=== PATIENT | female | born 2000 | race Caucasian/White ===

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

== ENCOUNTER 2022-01-26 10:22 | Outpatient (REF) | payer MEDICAID, SELFPAY | END 2022-01-26 10:23 | disposition home or self-care (01) | LOC: NCHCN 10:22 | PROVIDERS: Visit Provider Nurse Practitioner Women's Health | CPT/HCPCS: 87529 ==

== ENCOUNTER 2022-07-01 16:49 | Outpatient (REF) | payer MEDICAID, SELFPAY ==
[2022-07-04 15:19] LABS: Chlamydia Result Negative (Negative); GC Result Negative (Negative)
== END 2022-07-01 16:50 | disposition home or self-care (01) ==
LOC: LBN 16:49
PROVIDERS: Visit Provider Obstetrics & Gynecology
DX: Z11.3 Encounter for screening for infections with a predominantly sexual mode of transmission (principal)
CPT/HCPCS: 87491; 87591

== ENCOUNTER 2023-02-25 16:53 | Emergency (ER) | payer OTHER, MEDICAID, SELFPAY ==
--- NOTE | 2023-02-25 16:45 | DI.RAD_ITS ---
Exam(s) XR WRIST LT COMP NAVICULAR EXAM: XR WRIST LT COMP NAVICULAR CLINICAL HISTORY: pain. TECHNIQUE: 2D digital imaging was performed. Three views. COMPARISON: No exams were available for comparison FINDINGS: BONES: Question of nondisplaced distal radial fracture. No bony destructive lesion is seen. JOINTS: The carpal bones are normally aligned. SOFT TISSUE: Normal. IMPRESSION: Question of a nondisplaced distal radial fracture. Follow-up recommended. DATA REPOSITORY: RADIATION DOSE DELIVERED:
--- NOTE | 2023-02-25 17:08 | ED.GENADUL_ITS ---
Discharge Plan Disposition Patient Disposition: Home Discharge Details Clinical Impression: Left wrist sprain Primary Care Provider: Ana Ashraf ED Provider: Tripp Fontaine Home Meds and New Rx's Prescriptions: No Action albuterol sulfate [ProAir HFA] 90 mcg/actuation HFA aerosol inhaler 1 - 2 puff Inhalation Q4H PRN Qty: 2 0RF (DME) Aerochamber MV Spacer See Rx Instructions .ROUTE .MEDSUPPLY Qty: 1 0RF Rx Instructions: As directed Kyleena 17.5 mcg/24 hrs (5 yrs) 19.5 mg intrauterine device 1 device intrauterine ONCE Rx Instructions: as a single dose Discharge Instructions Instructions: Wrist Sprain (ED) Additional Instructions: Use the Hank wrap for support for the next 3 to 4 days. You may take Tylenol and Motrin for the pain. You may apply some ice packs to the affected area Discharge Data Discharge Date/Time-TO BE ENTERED AT DEPARTURE: 02/25/23 17:44 Medical Decision Making 23-year-old presents to the emergency department with left wrist pain. X-rays did not reveal any acute injuries. I believe this is swelling that she has risk is soft tissue related. She will be put on a Hank wrap and discharged home. Clinical impression wrist sprain HPI General Date/Time Provider Initiated Documentation: 02/25/23 16:54 . HPI Narrative: 22-year-old presented to the emergency room for evaluation of left wrist pain. She was playing softball going backwards tripped over her feet landed on her back and onto her left elbow. She states that she immediately felt pain in her left wrist. Pain with ranging the wrist. There is swelling and redness. No direct hit to the wrist. Isolated. Occurred prior to coming to the emergency department. Better with ice. Related Data Home Medications Medication Instructions Recorded Confirmed albuterol sulfate 90 mcg/actuation 1 - 2 puff inhalation Q4H PRN ##2 06/16/20 02/25/23 aerosol inhaler (ProAir HFA) inhalational spacing device #1 ea 06/16/20 02/25/23 (Aerochamber MV spacer) levonorgestrel 17.5 mcg/24 hrs 1 device intrauterine ONCE 12/08/20 02/25/23 (5yrs) 19.5mg intrauterine device (Kyleena) Previous Rx's Medication Instructions Recorded albuterol sulfate 90 mcg/actuation 1 - 2 puff inhalation Q4H PRN ##2 06/16/20 aerosol inhaler (ProAir HFA) inhalational spacing device #1 ea 06/16/20 (Aerochamber MV spacer) Allergies Allergy/AdvReac Type Severity Reaction Status Date / Time amoxicillin Allergy Severe Verified 07/01/22 15:00 environmental Allergy Mild Uncoded 07/01/22 15:00 General Stated Complaint: Orthopedic ROSEMARIE: 4 Review of Systems Narrative: Constitutional negative MSK see HPI, skin see HPI neuro no paresthesias, hematological not on blood thinners PFSH All Active Problems (Updated 02/25/23 @ 17:36 by Tripp Fontaine MD) Left wrist sprain (Acute) Pelvic pain (Acute) IUD surveillance (Acute) Depression (Chronic) Laceration of left index finger (Acute) Mild intermittent asthma without complication (Acute 01/05/16) exercise trigger Contraception (Acute) Depression with anxiety (Acute) Medical History Asthma only with URI Enuresis Right tibial fracture 2014 [place] Family History Other Alcohol abuse maternal Personal history of malignant neoplasm maternal-prostate Heart disease Grandparent Hyperlipidemia mat great grandmother Mental disorder paternal- anxiety/depression Myocardial infarction maternal Cancer Grandparent Hypertension Grandparent Asthma mat great grandmother Mother Healthy adult on routine physical examination Father Healthy adult on routine physical examination Maternal Grandmother Uterine cancer Social History Smoking/Tobacco Use Status: Never Smokeless tobacco user: other Quit status: quit date established Second Hand Exposure: No Smoking risk assessment performed?: Yes Alcohol Intake: current Alcohol Intake frequency: holidays/special occasions only Drug use: Occasionally Substance use type: marijuana Household members: family Pets and animals: Yes Pets and animals: cat(s), dog(s), guinea pig(s) and farm animals Sexually active: Yes Seatbelt use: always Helmet use: Yes Working smoke detector in home: Yes Fire extinguisher in home: Yes Carbon monox detector in home: Yes Do you feel safe at home: Yes Do you feel safe in your relationship?: Yes Female Reproductive History Menstrual control method: condoms and implanted History History 0 Para Hx # Term Pregnancies Multiple births Hx # Pregnancies Ectopic pregnancies AB induced Hx Number of Living Children AB spontaneous Exam Narrative Exam Narrative: Awake alert noted x3 calm no acute distress pleasant cooperative Normocephalic atraumatic Anicteric MMM PERRLA EOMI Respiratory no dyspnea normal respiratory drive Cardiovascular normal cap refill Left wrist. Course Vital Signs Vital signs: Respiratory Effort Normal, Non-Labored 02/25/23 17:00 Oxygen Delivery Method Room Air 02/25/23 16:58 Oxygen Flow Rate 0 02/25/23 16:58 Pain Level 6 02/25/23 16:58
--- NOTE | 2023-02-25 17:31 | DI.VRAD_ITS ---
PROCEDURE INFORMATION: Exam: XR Left Wrist Exam date and time: 02/25/2023 5:10 PM Age: 23 years old Clinical indication: Injury or trauma; Fall; Sprain or strain; Wrist; Left TECHNIQUE: Imaging protocol: Radiologic exam of the left wrist. Views: 3 or more views. COMPARISON: No relevant prior studies available. FINDINGS: Bones/joints: Normal. Soft tissues: Normal. IMPRESSION: No acute findings. Dictated and Authenticated by: Young Cheng MD. Ordering:DEVON Almaguer MD
== END 2023-02-25 17:44 | disposition home or self-care (01) ==
PROVIDERS: Emergency Provider Emergency Medicine; PCP Physician Assistant Medical
DX: S63.502A Unspecified sprain of left wrist, initial encounter (principal); W19.XXXA Unspecified fall, initial encounter
CPT/HCPCS: 99283; 73110

== ENCOUNTER 2023-05-10 10:03 | Outpatient (REF) | payer OTHER, MEDICAID, SELFPAY ==
--- NOTE | 2023-05-10 09:40 | PAPFT_PTH ---
PATIENT: Qian Gaviria LOC: [facility] U#:[id number] AGE/SX: 23/F ROOM: RE05/10/[address]: Ginger Roach NP : 2000 BED: DIS: 05/10/2023 SPEC #: [id number] RECD: 05/10/23 12:55 STATUS: TERRELL REMilton #: [id number] ADONAY: 05/10/23 09:[address]: Ginger Roach NP DEPT: [facility] Cytology RECD BY: Nasreen Martinez ENTERED: 05/10/23 12:55 SP TYPE: PAPFT OTHR DR: Ana Ashraf Tissues: 1 - CX/ENDOCX FOR PAP SMEARS Procedures: PAP THIN PREP/[facility] Screening Comments: [id number]
== END 2023-05-10 10:04 | disposition home or self-care (01) ==
LOC: LBN 10:03
PROVIDERS: PCP Physician Assistant Medical; Visit Provider Nurse Practitioner Women's Health
DX: Z11.51 Encounter for screening for human papillomavirus (HPV) (principal)
CPT/HCPCS: 88142

== ENCOUNTER 2023-09-13 12:52 | Outpatient (REF) | payer OTHER, MEDICAID, SELFPAY ==
[2023-09-13 15:24] LABS: Abs Immature Grans 0.02 10^3/uL (0.0-0.06); Absolute Basophil Count 0.05 10^3/uL (0.0-0.2); Absolute Eosinophil Count 0.09 10^3/uL (0.0-0.7); Absolute Lymphocyte Count 1.94 10^3/uL (1.2-3.4); Absolute Monocyte Count 0.48 10^3/uL (0.1-0.8); Absolute Neutrophil Count 5.27 10^3/uL (1.2-6.7); Basophils % 0.6; Eosinophils % 1.1; HCT 41.5 % (36.0-46.0); HGB 13.9 g/dL (11.2-15.7); Immature Grans % 0.3; Lymphocytes % 24.7; MCH 29.3 pg (27.0-33.0); MCHC 33.5 % (32.0-36.0); MCV 88 fL (80-95); MPV 11.5 fL (8.0-11.0); Monocytes % 6.1; Neutrophils % 67.2; Platelet Count 289 10^3/uL (130-400); RBC 4.74 10^6/uL (3.93-5.22); RDW 12.2 % (11.7-14.6); RDW-SD 39.2 fL; WBC 7.85 10^3/uL (4.4-10.8)
[2023-09-13 15:43] LABS: ALT 16 U/L (14-59); AST 14 U/L (15-37); Albumin 4.7 g/dL (3.4-5.0); Alkaline Phosphatase 52 U/L (46-116); Anion Gap 7.5 mmol/L (3-11); BUN 10 mg/dL (7-18); Bilirubin, Total 0.6 mg/dL (0.2-1.0); CO2 28.5 mmol/L (21.0-32.0); CREATININE 0.7 mg/dL (0.55-1.02); Calcium 9.8 mg/dL (8.5-10.1); Chloride 103 mmol/L (98-107); Estimated GFR 126.11 (mL/min/1.73m2); Glucose 91 mg/dL (74-106); Magnesium 2.3 mg/dL (1.8-2.4); Potassium 3.5 mmol/L (3.5-5.1); Sodium 139 mmol/L (136-145); TSH (W/Ref FT4) 0.82 uIU/mL (0.36-3.74); Total Protein 8.5 g/dL (6.4-8.2)
== END 2023-09-13 12:53 | disposition home or self-care (01) ==
LOC: NCHCN 12:52
PROVIDERS: PCP Physician Assistant Medical; Visit Provider Physician Assistant Medical
DX: Z00.00 Encounter for general adult medical examination without abnormal findings (principal); F41.9 Anxiety disorder, unspecified
CPT/HCPCS: 80053; 83735; 84443; 85025

== ENCOUNTER 2023-11-23 10:27 | Emergency (ER) | payer OTHER, SELFPAY ==
[2023-11-23 10:31] VITALS: BP 121/58; PULSE 65; RESP 15; TEMP 37; O2SAT 100
--- NOTE | 2023-11-23 10:53 | ED.GENADUL_ITS ---
HPI General Mode of arrival: ambulatory . Date/Time Provider Initiated Documentation: 11/23/23 10:41 . Limitations to Documentation: no limitations . Information obtained by: patient . History of Present Illness 23 year old F presents to the emergency department with the chief complaint of neck and head pain, described as mild, Quality is described as aching, and is localized to the neck. Patient reports no radiation. and it has been constant. No relieving factors improve symptom(s), No exacerbating factors reported . Patient notes denies chest pain, fever/chills and shortness of breath. Patient did receive the following treatments prior to arrival, none Related Data Home Medications Medication Instructions Recorded Confirmed albuterol sulfate 90 mcg/actuation 1 - 2 puff inhalation Q4H PRN ##2 06/16/20 11/23/23 aerosol inhaler (ProAir HFA) inhalational spacing device #1 ea 06/16/20 11/23/23 (Aerochamber MV spacer) escitalopram oxalate 10 mg tablet 10 mg PO DAILY 11/23/23 11/23/23 Previous Rx's Medication Instructions Recorded albuterol sulfate 90 mcg/actuation 1 - 2 puff inhalation Q4H PRN ##2 06/16/20 aerosol inhaler (ProAir HFA) inhalational spacing device #1 ea 06/16/20 (Aerochamber MV spacer) Allergies Allergy/AdvReac Type Severity Reaction Status Date / Time amoxicillin Allergy Severe Verified 05/10/23 09:23 environmental Allergy Mild Uncoded 05/10/23 09:23 General Stated Complaint: Nk/Back Pain ROSEMARIE: 4 Review of Systems All systems reviewed & are unremarkable except as noted in HPI and below Constitutional Constitutional: Denies chills, Denies fever(s) and Denies weakness Eyes Eyes: Denies loss of vision Cardiovascular Cardiovascular: Denies chest pain and Denies dyspnea Respiratory Respiratory: Denies cough and Denies dyspnea Gastrointestinal Gastrointestinal: Denies abdominal pain, Denies nausea and Denies vomiting Musculoskeletal Musculoskeletal: Denies joint swelling Neurologic Neurologic: Denies loss of vision and Denies weakness Exam Const General: no acute distress Orientation: alert [facility] Head: normal to inspection Ears: external ears normal General nose exam: external nose normal Mouth: moist mucous membranes Eyes General: appearance normal, both eyes and all related structures Neck Neck: normal visual inspection, full ROM, no meningeal signs and tender Resp Effort & Inspection: normal respiratory effort and able to speak in complete sentences Cardio Rate: regular rate Skin General skin exam: no rashes or lesions noted Neuro General: patient alert and patient oriented x3 Extrem General: normal to inspection Psych Mental Status: mental status grossly normal Course Vital Signs Vital signs: Vital Signs Temperature 37.0 C 11/23/23 10:31 Pulse 65 11/23/23 10:31 Respiratory Rate 15 11/23/23 10:31 Blood Pressure 121/58 L 11/23/23 10:31 Pulse Oximetry 100 11/23/23 10:31 Temperature 37.0 C 11/23/23 10:31 Temperature Source Temporal Artery Scan 11/23/23 10:31 Pulse 65 11/23/23 10:31 Respiratory Rate 15 11/23/23 10:31 Respiratory Effort Normal 11/23/23 10:33 Blood Pressure 121/58 L 11/23/23 10:31 Blood Pressure Position Sitting 11/23/23 10:31 Pulse Oximetry 100 11/23/23 10:31 Oxygen Delivery Method Nasal Cannula 11/23/23 10:31 Pain Level 6 11/23/23 10:33 Medical Decision Making 23-year-old with no significant past medical history comes in with 2 days of neck pain. She says 2 days ago she was at work opening the door to the go into a building when snow cleared off the roof of the building and landed on her upper back and neck. She denies loss of consciousness or falling from this. She has had gradually worsening pain in the muscles next to the midline neck. She also notes a mild headache, no vomiting. She is conscious and alert x 4 on arrival ambulating with a normal gait. She has no signs of trauma to the head pupils equal and reactive to light no midline C-spine tenderness is tender in the paraspinous muscles of the neck with no palpable or visible deformity. She has no midline T or L-spine tenderness denies any chest pain or abdominal pain. She meets criteria per [place] head rules to not image her head, suspect paraspinous muscle contusion versus strain will obtain x-rays though suspicion for fracture is low Differential Diagnosis Differential Diagnosis: cervical strain, contusion Imaging Data Radiologic Study: Attestation: I personally reviewed and interpreted this imaging study as follows: Imaging: X-Ray My impression: No acute findings Quality:SDOH Health Related Social Needs: No Data to Display PFSH All Active Problems (Updated 11/23/23 @ 11:27 by Felix Roach MD) Cervical strain (Acute) Depression (Chronic) Laceration of left index finger (Acute) Mild intermittent asthma without complication (Acute 01/05/16) exercise trigger Depression with anxiety (Acute) Medical History Asthma only with URI Enuresis Right tibial fracture 2014 [place] Family History Other Alcohol abuse maternal Personal history of malignant neoplasm maternal-prostate Heart disease Grandparent Hyperlipidemia mat great grandmother Mental disorder paternal- anxiety/depression Myocardial infarction maternal Cancer Grandparent Hypertension Grandparent Asthma mat great grandmother Mother Healthy adult on routine physical examination Father Healthy adult on routine physical examination Maternal Grandmother Uterine cancer Social History Smoking/Tobacco Use Status: Current every day Tobacco Type: e-cigarettes Smokeless tobacco user: other Quit status: quit date established Second Hand Exposure: No Smoking risk assessment performed?: Yes Alcohol Intake: current Alcohol Intake frequency: holidays/special occasions only Drug use: Daily Substance use type: marijuana Household members: family Pets and animals: Yes Pets and animals: cat(s), dog(s), guinea pig(s) and farm animals Sexually active: Yes Seatbelt use: always Helmet use: Yes Working smoke detector in home: Yes Fire extinguisher in home: Yes Carbon monox detector in home: Yes Do you feel safe at home: Yes Do you feel safe in your relationship?: Yes Female Reproductive History Menstrual control method: condoms and implanted History History 0 Para Hx # Term Pregnancies Multiple births Hx # Pregnancies Ectopic pregnancies AB induced Hx Number of Living Children AB spontaneous PAWSS Have you Been Recently Intoxicated or Drunk Within the Last 30 days?: No Have you Ever Experienced Previous Episodes of Alcohol Withdrawal?: No Have you ever Experienced Withdrawal Seizures?: No Have you ever Experienced Delirium Tremens(DT)s?: No Have you ever undergone Alcohol Rehabilitation Treatment (i.e, inpt ot outpatient treatment programs)?: No Have you ever Experienced Blackouts?: No Have you ever Combined Alcohol with other Downers within the last 90 days?: No Have you ever Combined Alcohol with any other Substance of Abuse during the last 90 days?: No Result: 0 Discharge Plan Disposition Patient Disposition: Home Condition: Stable Discharge Details Clinical Impression: Cervical strain Primary Care Provider: Ana Ashraf ED Provider: Felix Roach Home Meds and New Rx's Prescriptions: Continued albuterol sulfate [ProAir HFA] 90 mcg/actuation HFA aerosol inhaler 1 - 2 puff Inhalation Q4H PRN Qty: 2 0RF (DME) Aerochamber MV Spacer See Rx Instructions .ROUTE .MEDSUPPLY Qty: 1 0RF Rx Instructions: As directed escitalopram oxalate 10 mg tablet 10 mg PO DAILY Patient Comments: TAKE 1 TABLET BY MOUTH EVERY DAY Discharge Instructions Additional Instructions: Your x-ray did not show any concerning findings at this time If pain continues next week follow-up with your primary care provider If you feel more ill have severe worsening pain or new symptoms such as persistent vomiting return to the emergency department
[2023-11-23] MEDS: Ibuprofen 600 MG TAB PO (10:59)
--- NOTE | 2023-11-23 11:20 | DI.RAD_ITS ---
Exam(s) XR CERVICAL SP ROPER TRAUMA 2-3V EXAM: XR CERVICAL SP ROPER TRAUMA 2-3V CLINICAL HISTORY: pain s/p snow/ice falling on her neck 2 days ago. TECHNIQUE: 2D digital imaging was performed. Three views. COMPARISON: No exams were available for comparison FINDINGS: BONES: No fracture or destructive lesion. Vertebral bodies are unremarkable. DISKS: Intervertebral disc spaces are maintained. ALIGNMENT: Cervical spinal alignment is within normal limits. The odontoid and atlantoaxial articulat ions are normal. SOFT TISSUE: Normal. The lung apices are clear. IMPRESSION: Unremarkable radiographs of the cervical spine. DATA REPOSITORY: RADIATION DOSE DELIVERED:
== END 2023-11-23 11:58 | disposition home or self-care (01) ==
PROVIDERS: Emergency Provider Emergency Medicine; PCP Physician Assistant Medical
DX: S16.1XXA Strain of muscle, fascia and tendon at neck level, initial encounter (principal); M54.2 Cervicalgia; W20.8XXA Other cause of strike by thrown, projected or falling object, initial encounter
CPT/HCPCS: 99283; 72040

== ENCOUNTER 2024-11-21 23:57 | Emergency (ER) | payer SELFPAY ==
[2024-11-22] VITALS: BP 123/77; PULSE 83; RESP 16; TEMP 36.7; O2SAT 97
--- NOTE | 2024-11-22 00:27 | ED.GENADUL_ITS ---
Discharge Plan Disposition Patient Disposition: Home Condition: Good Discharge Details Clinical Impression: Chemical burn of face Primary Care Provider: Ana Ashraf ED Provider: Alan Delgado Home Meds and New Rx's Prescriptions: New hydrocortisone 1 % cream 1 applic topical BID Qty: 28.35 0RF No Action albuterol sulfate [ProAir HFA] 90 mcg/actuation HFA aerosol inhaler 1 - 2 puff Inhalation Q4H PRN Qty: 2 0RF (DME) Aerochamber MV Spacer See Rx Instructions .ROUTE .MEDSUPPLY Qty: 1 0RF Rx Instructions: As directed escitalopram oxalate 10 mg tablet 10 mg PO DAILY Patient Comments: TAKE 1 TABLET BY MOUTH EVERY DAY Discharge Instructions Instructions: Skin driver Additional Instructions: At this time you have developed a mild chemical burn to the lateral aspect of your right facial skin around your eye. Please apply a small amount of bacitracin or triple antibiotic ointment to the affected area. Please sleep with a cool compress to help reduce swelling. If you notice that the redness significantly increases you may utilize the prescribed steroid cream, but please contact us in the emergency department before transitioning to this treatment. It will likely take 1 to 2 weeks for this redness and irritation to resolve. Thankfully there is no evidence of irritation on your eyeball itself. No evidence of acidosis or alkalosis. If you notice any worsening of your symptoms, or any new symptoms such as vomiting, diarrhea, fever, chills, shortness of breath, chest pain, numbness, weakness, or fainting , please return immediately to the emergency department for reevaluation. Please follow up with your primary care provider as soon as possible for reassessment and reevaluation. As always, it was a pleasure participating in your medical care today. Referrals: Ana Ashraf PA [Primary Care Provider] - Discharge Data Discharge Date/Time-TO BE ENTERED AT DEPARTURE: 11/22/24 00:36 HPI General Date/Time Provider Initiated Documentation: 11/22/24 00:05 . HPI Narrative: This is a pleasant 24-year-old female who presents today for evaluation after a chemical burn to her right face. 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 She washed the area with a clean washcloth and water. Today she noticed there was redness and irritation on the skin at the lateral canthus, and by the lateral aspect of the lower lid and lateral orbit on the right-hand side. She denies any irritation burning or vision changes for the eyeball itself. This evening she contacted a family member who is in the medical field, specifically an eye doctor who recommended that she aggressively wash the eye and face. The patient then subsequently aggressively washed the eye ball and skin. She then came to the ER for further assessment. Of note she does have a few small lesions at the bridge of her nose and on her chin, which she states were zits that she picked at. She denies any other new lesions from the spray itself. Aside from mild burning sensation, the patient denies any other complaints whatsoever. No other modifying factors. Related Data Home Medications ?Medication ?Instructions ?Recorded ?Confirmed albuterol sulfate 90 mcg/actuation 1 - 2 puff inhalation Q4H PRN ##2 06/16/20 11/22/24 aerosol inhaler (ProAir HFA) inhalational spacing device #1 ea 06/16/20 11/22/24 (Aerochamber MV spacer) escitalopram oxalate 10 mg tablet 10 mg PO DAILY 11/23/23 11/22/24 hydrocortisone 1 % topical cream 1 applic topical BID #28.35 grams 11/22/24 Previous Rx's ?Medication ?Instructions ?Recorded albuterol sulfate 90 mcg/actuation 1 - 2 puff inhalation Q4H PRN ##2 06/16/20 aerosol inhaler (ProAir HFA) inhalational spacing device #1 ea 06/16/20 (Aerochamber MV spacer) hydrocortisone 1 % topical cream 1 applic topical BID #28.35 grams 11/22/24 Allergies Allergy/AdvReac Type Severity Reaction Status Date / Time amoxicillin Allergy Severe Hives Verified 11/22/24 00:03 environmental Allergy Mild Itching Uncoded 11/22/24 00:03 General Stated Complaint: EyeProblem ROSEMARIE: 4 Exam Narrative Exam Narrative: 1.Const: Well-nourished, Well-developed, appearing stated age 2.Eyes: PERRL, no conjunctival injection, and symmetrical lids. No conjunctival injection, swelling or other abnormality for the right or left eye. pH is around 7.0 for the right eye. No signs of irritation on eversion of the upper and lower lids. 3.ENT: Atraumatic external nose and ears. Moist MM. Neck: Symmetric, trachea midline, No thyromegaly. 4.CVS: +S1/S2, Peripheral pulses 2+ and equal in all extremities. Brisk capillary refill in all extremities. 5.RESP: Unlabored respiratory effort. Clear to auscultation bilaterally. No wheezes rales or rhonchi 6.GI: Soft, Nontender/Nondistended, No hepatosplenomegaly. No guarding or rebound. 7.MSK: Normocephalic/Atraumatic, Extremities w/o deformity or ttp No cyanosis or clubbing, Normal movement of all extremities 8.Skin: Warm, Dry. There is a small amount of chemical like irritated erythema just lateral to the right lateral canthus on the lateral orbit aspect of the skin. There is also a small area of eschar in that area likely secondary to chemical irritation. No evidence of liquefactive necrosis, no drainage, no discharge, no weeping. No purulence. No sloughing of the skin. Negative Nikolsky sign. 9.Neuro: engineering production liaison II-XII grossly intact. Sensation grossly intact, no focal neurologic deficits. 10.Psych: (AAO) x3. Appropriate mood and affect Course Vital Signs Vital signs: Vital Signs Temperature 36.7 C 11/22/24 00:00 Pulse 83 11/22/24 00:00 Respiratory Rate 16 11/22/24 00:00 Blood Pressure 123/77 11/22/24 00:00 Pulse Oximetry 97 11/22/24 00:00 Temperature 36.7 C 11/22/24 00:00 Temperature Source Temporal Artery Scan 11/22/24 00:00 Pulse 83 11/22/24 00:00 Respiratory Rate 16 11/22/24 00:00 Blood Pressure 123/77 11/22/24 00:00 Blood Pressure Position Sitting 11/22/24 00:00 Pulse Oximetry 97 11/22/24 00:00 Oxygen Delivery Method Room Air 11/22/24 00:00 Oxygen Flow Rate 0 11/22/24 00:00 Pain Level 2 11/22/24 00:00 Medical Decision Making This is a pleasant 24-year-old female who presents today for evaluation after a chemical burn to her right face. 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 She washed the area with a clean washcloth and water. Today she noticed there was redness and irritation on the skin at the lateral canthus, and by the lateral aspect of the lower lid and lateral orbit on the right-hand side. She denies any irritation burning or vision changes for the eyeball itself. This evening she contacted a family member who is in the medical field, specifically an eye doctor who recommended that she aggressively wash the eye and face. The patient then subsequently aggressively washed the eye ball and skin. She then came to the ER for further assessment. Of note she does have a few small lesions at the bridge of her nose and on her chin, which she states were zits that she picked at. She denies any other new lesions from the spray itself. Aside from mild burning sensation, the patient denies any other complaints whatsoever. No other modifying factors. The patient's physical exam demonstrates no conjunctival injection, swelling or other abnormality for the right or left eye. pH is around 7.0 for the right eye. No signs of irritation on eversion of the upper and lower lids. There is a small amount of chemical like irritated erythema just lateral to the right lateral canthus on the lateral orbit aspect of the skin. There is also a small area of eschar in that area likely secondary to chemical irritation. No evidence of liquefactive necrosis, no drainage, no discharge, no weeping. No purulence. No sloughing of the skin. Negative Nikolsky sign. Symptoms appear consistent with chemical irritation and mild chemical burn over the lateral orbit of the right face. No other significant lesions. At worst the symptoms appear consistent with coagulative necrosis, and not liquefactive necrosis. No evidence to suggest irritation to the eye itself. Will recommend nightly cool compresses to help with swelling. 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 Will give a prescription for low-dose hydrocortisone, and will recommend use only if the redness persists and worsens. No evidence of significant cellulitis necessitating oral antibiotics. Discussed red flags for which to return. I have extensively reviewed the treatment plan and discharge instructions with the patient. I have addressed all patient concerns at this time. The patient was made aware of what symptoms to monitor for that would warrant a return to the emergency department. Discussed the plan with the patient, they demonstrate verb al understanding and agreement with our assessment and plan at this time. The documentation in this chart was dictated using [employer] dictation software. Please excuse any dictation errors. Quality:SDOH Health Related Social Needs: No Data to Display PFSH All Active Problems (Updated 11/22/24 @ 00:28 by Alan Delgado DO) Chemical burn of face (Acute) Depression (Chronic) Laceration of left index finger (Acute) Mild intermittent asthma without complication (Acute 01/05/16) exercise trigger Depression with anxiety (Acute) Medical History Asthma only with URI Enuresis Right tibial fracture 2014 [place] Family History Other Alcohol abuse maternal Personal history of malignant neoplasm maternal-prostate Heart disease Grandparent Hyperlipidemia mat great grandmother Mental disorder paternal- anxiety/depression Myocardial infarction maternal Cancer Grandparent Hypertension Grandparent Asthma mat great grandmother Mother Healthy adult on routine physical examination Father Healthy adult on routine physical examination Maternal Grandmother Uterine cancer Social History Smoking/Tobacco Use Status: Current every day Tobacco Type: e-cigarettes Smokeless tobacco user: other Quit status: quit date established Second Hand Exposure: No Smoking risk assessment performed?: Yes Alcohol Intake: current Alcohol Intake frequency: holidays/special occasions only Drug use: Daily Substance use type: marijuana Household members: family Pets and animals: Yes Pets and animals: cat(s), dog(s), guinea pig(s) and farm animals Sexually active: Yes Seatbelt use: always Helmet use: Yes Working smoke detector in home: Yes Fire extinguisher in home: Yes Carbon monox detector in home: Yes Do you feel safe at home: Yes Do you feel safe in your relationship?: Yes Female Reproductive History Menstrual control method: condoms and implanted History History 0 Para Hx # Term Pregnancies Multiple births Hx # Pregnancies Ectopic pregnancies AB induced Hx Number of Living Children AB spontaneous
== END 2024-11-22 00:36 | disposition home or self-care (01) ==
PROVIDERS: Emergency Provider Student in an Organized Health Care Education/Training Program; PCP Physician Assistant Medical
DX: T20.40XA Corrosion of unspecified degree of head, face, and neck, unspecified site, initial encounter (principal)
CPT/HCPCS: 99283